=== PATIENT | female | born 1980 | race Caucasian/White ===

== ENCOUNTER 2021-10-28 19:41 | Emergency (ER) | payer SELFPAY ==
[~2021-10-28] VITALS: Ht 172.7 cm; Wt 97.7 kg
[2021-10-28 20:25] VITALS: BP 125/77
[2021-10-28] MEDS ORDERED: GABAPENTIN 300 MG CAPSULE PO ONE (20:45)
[2021-10-28] MEDS ORDERED: KETOROLAC TROMETHAMINE 60 MG/2 ML VIAL IM ONE (20:45)
[2021-10-28] MEDS ORDERED: METHOCARBAMOL 500 MG TABLET PO ONE (20:45)
[2021-10-28] MEDS ORDERED: GABA-1181 PO (21:15)
[2021-10-28] MEDS ORDERED: CYCL-448 PO (21:15)
[2021-10-28] MEDS ORDERED: LIDO15CR11 TP (21:17)
[2021-10-28] MEDS ORDERED: NAPR-1025 PO (21:17)
== END 2021-10-28 21:36 | disposition home or self-care (01) ==
LOC: EMS 19:44
DX: M54.41 Lumbago with sciatica, right side (principal); Z88.8 Allergy status to other drugs, medicaments and biological substances
CPT/HCPCS: 96372; 99283; J1885

== ENCOUNTER 2022-01-03 17:30 | Emergency (ER) | payer MEDICARE ==
[~2022-01-03] VITALS: Ht 172.7 cm; Wt 113.6 kg
[~2022-01-03 17:30] MED LIST: CYCL-448 PO; GABA-1181 PO; LIDO15CR11 TP; NAPR-1025 PO
[2022-01-03] MEDS ORDERED: IBUPROFEN 600 MG TABLET PO ONE (18:45)
[2022-01-03 19:39] VITALS: BP 132/77
== END 2022-01-03 21:53 | disposition home or self-care (01) ==
LOC: EMS 17:30
DX: S93.401A Sprain of unspecified ligament of right ankle, initial encounter (principal); X50.1XXA Overexertion from prolonged static or awkward postures, initial encounter; Y93.89 Activity, other specified; Y92.89 Other specified places as the place of occurrence of the external cause; Y99.8 Other external cause status; Z88.8 Allergy status to other drugs, medicaments and biological substances
CPT/HCPCS: 99284; 73610-TC; 73630-TC; Z7502; Z7610

== ENCOUNTER 2024-07-01 13:07 | Emergency (ER) | payer MEDICARE, MEDICAID ==
[~2024-07-01] VITALS: Ht 167.6 cm; Wt 90.9 kg
[~2024-07-01 13:07] MED LIST changes: -LIDO15CR11 TP; +LIDO15CR15 TP
[2024-07-01 13:09] VITALS: TEMP 98.6
[2024-07-01 14:05] VITALS: BP 134/64; PULSE 99; RESP 17; O2SAT 99
[2024-07-01] MEDS ORDERED: IBUP-1554 PO (14:11)
[2024-07-01] MEDS ORDERED: ACET-66 PO (14:11)
[2024-07-01] MEDS: IBUPROFEN 600 MG TABLET PO ONE (14:17)
[2024-07-01] MEDS: ACETAMINOPHEN 500 MG TABLET PO ONE (14:17)
== END 2024-07-01 15:36 | disposition home or self-care (01) ==
LOC: EMS 13:07
DX: S93.402A Sprain of unspecified ligament of left ankle, initial encounter (principal); Z79.899 Other long term (current) drug therapy; X58.XXXA Exposure to other specified factors, initial encounter; Y93.89 Activity, other specified; Y92.89 Other specified places as the place of occurrence of the external cause; Y99.8 Other external cause status
CPT/HCPCS: 99283